=== PATIENT | female | born 1950 | race Caucasian/White ===

== ENCOUNTER 2024-09-26 10:27 | Outpatient (AMB) | payer MEDICARE, SELFPAY ==
--- NOTE | 2024-09-25 10:59 | MHC.OFFVIS ---
Intake Visit Reasons: mild asthma Allergies No Known Allergies Allergy (Verified 09/25/24 10:52) Coding
--- NOTE | 2024-09-26 10:36 | MHC.OFFVIS ---
Vital Signs 09/26/24 10:38 Height 5 ft 4 in Weight 210 lb 8.663 oz BMI 36.1 BP 124/70 Blood Pressure Location Rt brachial Position Sitting Pulse 76 Pulse Source Pulse Oximeter Pulse Oximetry (%) 97 Oxygen Delivery Method Room Air Intake Visit Reasons: mild asthma Reliability Technologist Required: No Microphone Boom Operator: Microphone Boom Operator offered & declined Accompanied by: Self / Same As Patient Allergies No Known Allergies Allergy (Verified 09/26/24 10:41) Medication List - Last Reconciled 09/26/24 by Kathy Cooper LPN acetaminophen ER (Tylenol 8 Hour) 1,300 mg PO ONCE PRN albuterol sulfate 90 mcg/actuation 2 puffs inhalation Q4-6H PRN atorvastatin 20 mg PO DAILY azelastine 2 sprays intranasal BID calcium carbonate-vitamin D3 600 mg-5 mcg (200 unit) 2 tabs PO DAILY cranberry extract 425 mg PO DAILY estradiol (Yuvafem) 10 mcg vaginal 3XW fluticasone propion-salmeterol 250-50 mcg/dose (Wixela Inhub) 1 inh inhalation BID fluticasone propionate 50 mcg/actuation 1 spray intranasal DAILY furosemide 20 mg PO DAILY PRN ibuprofen 200 mg PO Q6H PRN [id number] 333-1.7 mg (Airborne (ascorbate sodium)) tabs PO omeprazole 20 mg PO DAILY triamterene-hydrochlorothiazid 37.5-25 mg 1 tab PO DAILY HPI Comments Details: The patient is here for pulmonary evaluation. The patient is a 74 year woman with a known history of asthma who presents with worsening asthma symptoms. Apparently the patient states for the last year she has had multiple exacerbations about 3. She has required prednisone 3. The patient has been requiring her rescue inhaler often. More recently in the fall she was started on Advair that seems to be working well for her. She is taking the discuss and she is aware that this medication is no longer be made and she will be have to switch over to a similar medication. Patient just returned from a trip from [place]. While on her flight back the patient was exposed to sick child who was coughing sneezing and therefore she picked up a cold. She has been having some chest congestion productive phlegm with yellow phlegm and also some chest heaviness. She has not taking any medications for this. I did advise her to start a short course of azithromycin. She does not have any significant wheezing at this time and therefore she does not need to start steroids. I will send her a course of Medrol just in case her symptoms do worsen. In the meantime the triggers for asthma is not clear. Will go ahead and request allergy testing in addition to that will have her undergo pulmonary function studies. She did have a chest x-ray although I do not have it available at this time. [facility] Medical History (Updated 09/26/24 @ 21:43 by Real Mcduffie MD) URI (upper respiratory infection) Chronic cough Allergies Asthma Social History (Updated 09/26/24 @ 10:44 by Kathy Cooper LPN) Patient Tobacco Use Status: Former Tobacco user Cigarette Packs Per Day: 0.5 Years Smoked: 5 Review of Systems Const Denies fever(s) Eyes Reports no additional complaints ENT Reports nasal congestion Card Denies chest pain and Reports dyspnea on exertion Resp Reports as per HPI, Reports cough, Reports dyspnea on exertion and Reports wheezing GI Reports no additional complaints Musc Reports no additional complaints Skin/Breast Denies rash Endo Reports no additional complaints Alan/Lymph Reports no additional complaints Aller/Immun Reports wheezing Physical Exam Vital Signs: Last Vital Signs Pulse 76 09/26/24 10:38 BP 124/70 09/26/24 10:38 Pulse Ox 97 09/26/24 10:38 Oxygen Delivery Method Room Air 09/26/24 10:38 BMI result Body Mass Index 36.1 Const General: comfortable HEENT Head: Yes normocephalic Neck Neck: Yes supple Chest Chest palpation & inspection: normal inspection of the chest Resp Effort & Inspection: normal respiratory effort Auscultation: clear to auscultation bilaterally Cardio Heart sounds: S1 normal heart sound present and S2 normal heart sound present GI Palpation (GI): Soft to palpation Skin General skin exam: no rashes or lesions noted Extrem General: Yes no clubbing, cyanosis or edema Assessment & Plan Assessment & Plan (1) Chronic cough: Code(s): R05.3 - Chronic cough Category: Medical (2) Allergies: Code(s): T78.40XA - Allergy, unspecified, initial encounter Category: Medical Qualifiers: Encounter type: initial encounter Qualified Code(s): T78.40XA - Allergy, unspecified, initial encounter (3) Asthma: Code(s): J45. - Unspecified asthma, uncomplicated Category: Medical Qualifiers: Asthma severity: moderate Asthma persistence: persistent Asthma complication type: uncomplicated Qualified Code(s): J45.40 - Moderate persistent asthma, uncomplicated (4) URI (upper respiratory infection): Code(s): J06.9 - Acute upper respiratory infection, unspecified Category: Medical Qualifiers: URI type: unspecified URI Qualified Code(s): J06.9 - Acute upper respiratory infection, unspecified Plan Zpack Medrol pk if no better Continue Wixela/Advair PFTs Bloodwork/allergy testing F/U 2 months Orders: Orders PFT pulmonary function test Today J45.909 - Unspecified asthma, uncomplicated, R05.3 - Chronic cough, T78.40XA - Allergy, unspecified, initial encounter Resp Allergy Profile Region I Today J45.90 - Unspecified asthma, uncomplicated, R05.3 - Chronic cough, R91.1 - Solitary pulmonary nodule, T78.40XA - Allergy, unspecified, initial encounter Immunoglobulins,IgG IgA IgM Today J45.90 - Unspecified asthma, uncomplicated, R05.3 - Chronic cough, T78.40XA - Allergy, unspecified, initial encounter Erythrocyte Sedimentation Rate Today J45.909 - Unspecified asthma, uncomplicated, R05.3 - Chronic cough, T78.40XA - Allergy, unspecified, initial encounter Immunoglobulin E Today J45.90 - Unspecified asthma, uncomplicated, R05.3 - Chronic cough, T78.40XA - Allergy, unspecified, initial encounter Complete Blood Count Auto Diff Today J45.40 - Moderate persistent asthma, uncomplicated Medications: New azithromycin 500 mg PO DAILY 5 days 5 tabs 0RF fluticasone propion-salmeterol 250-50 mcg/dose 1 inh inhalation BID 60 ea 11RF methylprednisolone (Medrol (Chucky)) PO PER PKG DIR 6 days 21 ea 0RF Coding Level of Care Code New Pt Level 4 (91687) Diagnoses Chronic cough R05.3 Allergy, initial encounter T78.40XA Encounter type: initial encounter Moderate persistent asthma without complication J45.40 Asthma severity: moderate Asthma persistence: persistent Asthma complication type: uncomplicated Upper respiratory tract infection, unspecified type J06.9 URI type: unspecified URI Time Spent (min) 36
[2024-09-26 10:38] VITALS: BP 124/70; PULSE 76; O2SAT 97; BMI 36.1
--- OUTSIDE RECORDS SUMMARY | 2024-10-03 12:32 | XMS_ITS ---
Author Name [facility] Organization Unknown History of Medication Use Medication Directions Dispensed Refills Start Date End Date Stat ibuprofen 600 mg tablet TAKE 1 TABLET BY MOUTH EVERY 6 HOURS 1 HOUR BEFORE DENTAL APPOINTMENT FOR PAIN 12/03/2023 active chlorhexidine gluconate 0.12 % mouthwash 12/03/2023 active Paxlovid 300 mg (150 mg x 2)-100 mg tablets in a dose pack TK 2 NIRMATRELVIR TS AND 1 RITONAVIR T TOGETHER PO BID FOR 5 DAYS 12/03/2023 active omeprazole 20 mg capsule,delayed release TAKE 1 CAPSULE BY MOUTH TWICE DAILY 12/03/2023 active triamterene 37.5 mg-hydrochlorothiazide 25 mg tablet 12/03/2023 active fluticasone propionate 50 mcg/actuation nasal spray,suspension SHAKE LIQUID AND USE 1 SPRAY IN EACH NOSTRIL EVERY DAY 12/03/2023 active diclofenac sodium 25 mg tablet,delayed release TAKE 1 TABLET BY MOUTH EVERY DAY 12/03/2023 active triamterene 37.5 mg-hydrochlorothiazide 25 mg tablet 12/03/2023 active atorvastatin 20 mg tablet 12/03/2023 active estradiol 10 mcg vaginal tablet INSERT 1 TABLET VAGINALLY THREE TIMES A WEEK 12/03/2023 active nitrofurantoin monohydrate/macrocryst als 100 mg capsule TAKE 1 CAPSULE BY MOUTH TWICE DAILY WITH FOOD FOR 5 DAYS 12/03/2023 active sulfamethoxazole 800 mg-trimethoprim 160 mg tablet TAKE 1 TABLET BY MOUTH TWICE DAILY FOR 5 DAYS 12/03/2023 active amoxicillin 500 mg capsule TAKE 1 CAPSULE BY MOUTH THREE TIMES DAILY 12/03/2023 active Problems Problem Status Onset Date Problem Type Date of Resoluti on Source Infrapatellar bursitis of right knee active 2023-12-01 ProblemAct ENS_AONECT Osteoarthritis of right hip joint active 2023-12-01 ProblemAct E[facility]
== END 2024-09-26 11:02 | disposition home or self-care (01) ==
PROVIDERS: PCP Family Medicine; Visit Provider Hospitalist
DX: R05.3 Chronic cough (principal); T78.40XA Allergy, unspecified, initial encounter; J45.40 Moderate persistent asthma, uncomplicated; J06.9 Acute upper respiratory infection, unspecified
CPT/HCPCS: 99204

== ENCOUNTER → 2024-09-26 10:27 | Outpatient (BNVA) | payer MEDICARE, SELFPAY | PROVIDERS: PCP Family Medicine; Visit Provider Hospitalist | DX: J45.40 Moderate persistent asthma, uncomplicated (principal); R05.3 Chronic cough; J06.9 Acute upper respiratory infection, unspecified; T78.40XA Allergy, unspecified, initial encounter | CPT/HCPCS: 99202 ==

== ENCOUNTER 2024-11-16 09:49 | Outpatient (REF) | payer MEDICARE, SELFPAY ==
--- NOTE | 2024-11-16 09:53 | PFT_ITS ---
Indication: Asthma Spirometry [FEV1 FVC 79%; FEV1 2.18 L; FVC 2.76 L. no significant response to bronchodilators noted.] Lung Volumes [Total lung capacity 81% predicted; residual volume 62% predicted; expiratory reserve volume 19% predicted] Diffusion Capacity [DLCO 78% predicted; DLCO VA 92% predicted] Comparisons [none] Interpretation [No obstructive nor restrictive ventilatory defects identified. No significant response to bronchodilators noted. Lung volumes are low normal. This is significant decreased expiratory reserve volume secondary to elevated BMI. The patient does have a mild diffusion impairment although it rescue normal when corrected for the alveolar volume. Clinical correlation warranted.] MTDD
== END 2024-11-16 09:50 | disposition home or self-care (01) ==
LOC: HO.RESP 09:49
PROVIDERS: PCP Family Medicine; Visit Provider Hospitalist
DX: J45.909 Unspecified asthma, uncomplicated (principal); R05.3 Chronic cough; T78.40XA Allergy, unspecified, initial encounter
CPT/HCPCS: 94010; 94640; 94727; 94729

== ENCOUNTER → 2024-11-16 09:53 | Outpatient (BNV) | payer MEDICARE, SELFPAY | PROVIDERS: PCP Family Medicine; Visit Provider Hospitalist | DX: J45.909 Unspecified asthma, uncomplicated (principal) | CPT/HCPCS: 94060; 94727; 94729 ==

== ENCOUNTER 2025-03-01 09:59 | Outpatient (AMB) | payer MEDICARE, SELFPAY ==
[2025-03-01 10:06] VITALS: BP 110/62; PULSE 88; O2SAT 96; BMI 36.1
--- NOTE | 2025-03-01 10:06 | MHC.OFFVIS ---
Vital Signs 03/01/25 10:06 Height 5 ft 4 in Weight 210 lb 8.663 oz BMI 36.1 BP 110/62 Blood Pressure Location Lt brachial Position Sitting Pulse 88 Pulse Source Pulse Oximeter Pulse Oximetry (%) 96 Oxygen Delivery Method Room Air Intake Visit Reasons: S/p pft Washroom Cleaner Required: No Accompanied by: Self / Same As Patient Allergies No Known Allergies Allergy (Verified 03/01/25 10:09) HPI Comments Details: The patient is a 74 year woman with a known history of asthma who presents with worsening asthma symptoms. Apparently the patient states for the last year she has had multiple exacerbations about 3. She has required prednisone 3. The patient has been requiring her rescue inhaler often. More recently in the fall she was started on Advair that seems to be working well for her. She is taking the discuss and she is aware that this medication is no longer be made and she will be have to switch over to a similar medication. Patient just returned from a trip from [place]. While on her flight back the patient was exposed to sick child who was coughing sneezing and therefore she picked up a cold. She has been having some chest congestion productive phlegm with yellow phlegm and also some chest heaviness. She has not taking any medications for this. I did advise her to start a short course of azithromycin. She does not have any significant wheezing at this time and therefore she does not need to start steroids. I will send her a course of Medrol just in case her symptoms do worsen. In the meantime the triggers for asthma is not clear. Will go ahead and request allergy testing in addition to that will have her undergo pulmonary function studies. She did have a chest x-ray although I do not have it available at this time. 03/01/2025 the patient is here for pulmonary follow-up visit. She continues to have her symptoms of productive cough. She coughs on regular basis. Moderate severity. She continues use the Advair. This is been helpful although partially. She also uses her rescue inhaler. We did review her pulmonary function studies. No evidence of any obstructive nor restrictive ventilatory defects. She did have a chest x-ray done at [facility] although I do have the report to review. If she continues symptomatic we may have to repeat the x-ray and or get a CT scan of chest to further address her underlying symptoms. The patient is wondering about allergies. She is already taking [id number] antihistamines. Will add her Singulair. She is still complaining that she would like this congestion to settled specially since she has been taking Mucinex and is not helping much. Will start her on azithromycin macrolide suppression therapy in order to her chronic bronchitis. we can also consider Daliresp has a good option for chronic bronchitis. She did not have the blood work done in the blood work will be helpful to assess for any allergic components or immuno compromising conditions. Will follow-up in 4 months if the patient develops any worsening symptoms or any other concerning issues she can always call for an earlier assessment. [facility] Medical History (Updated 09/26/24 @ 21:43 by Real Mcduffie MD) URI (upper respiratory infection) Chronic cough Allergies Asthma Social History Alcohol intake: current Alcohol intake frequency: holidays/special occasions only Patient Tobacco Use Status: Former Tobacco user Cigarette Packs Per Day: 0.5 Years Smoked: 5 Review of Systems Const Denies chills, Denies fatigue, Denies fever(s), Denies weight gain and Denies weight loss Eyes Reports no additional complaints ENT Denies dizziness Card Denies chest pain, Denies leg edema, Denies lightheadedness, Denies palpitations, Denies dyspnea on exertion, Denies orthopnea and Denies other Resp Denies cough, Denies dyspnea on exertion and Reports wheezing GI Denies hematochezia and Denies change in stool character Musc Denies abnormal gait, Denies muscle weakness, Denies numbness, Denies radiating pain into limb and Denies tingling Skin/Breast Denies rash Neuro Denies abnormal gait, Denies dizziness, Denies numbness and Denies tingling Endo Denies fatigue and Denies palpitations Alan/Lymph Reports no additional complaints Aller/Immun Reports wheezing Physical Exam Vital Signs: Last Vital Signs Pulse 88 03/01/25 10:06 BP 110/62 03/01/25 10:06 Pulse Ox 96 03/01/25 10:06 Oxygen Delivery Method Room Air 03/01/25 10:06 BMI result Body Mass Index 36.1 Const General: comfortable HEENT Head: Yes normocephalic Neck Neck: Yes supple Chest Chest palpation & inspection: normal inspection of the chest Resp Effort & Inspection: normal respiratory effort Auscultation: wheezes and diminished lung sounds Cardio Heart sounds: S1 normal heart sound present and S2 normal heart sound present GI Palpation (GI): Soft to palpation Skin General skin exam: no rashes or lesions noted Extrem General: Yes no clubbing, cyanosis or edema Assessment & Plan Assessment & Plan (1) Chronic cough: Code(s): R05.3 - Chronic cough Category: Medical (2) Allergies: Code(s): T78.40XA - Allergy, unspecified, initial encounter Category: Medical Qualifiers: Encounter type: initial encounter Qualified Code(s): T78.40XA - Allergy, unspecified, initial encounter (3) Asthma: Code(s): J45.909 - Unspecified asthma, uncomplicated Category: Medical Qualifiers: Asthma complication type: uncomplicated Asthma persistence: persistent Asthma severity: moderate Qualified Code(s): J45.40 - Moderate persistent asthma, uncomplicated Plan Start Singulair continue Antihistamines OTC Continue Wixela/Advair, consider Trelegy or adding LAMA start Azithromycin MWF x 6-8 weeks Bloodwork/allergy testing MAy need additional imaging if no better (Need to review her rec F/U 4-6 months Medications: New montelukast 10 mg PO DAILY 30 days 30 tabs 11RF J45.909 - Unspecified asthma, uncomplicated azithromycin Take 1 tablet on Wednesday/Wednesday/Wednesday 250 mg PO 3XW 28 days 12 tabs 1RF K21.9 - Gastro-esophageal reflux disease without esophagitis Coding Level of Care Code Est Pt Level 4 (16343) Diagnoses Chronic cough R05.3 Allergy, initial encounter T78.40XA Encounter type: initial encounter Moderate persistent asthma without complication J45.40 Asthma complication type: uncomplicated Asthma persistence: persistent Asthma severity: moderate Time Spent (min) 17
--- OUTSIDE RECORDS SUMMARY | 2025-03-01 10:59 | XMS_ITS | Clinical Summary ---
Author Organization [facility] Address [address] [place] [address] Care Team Providers Care Posting Specialist Name Role Phone Belinda Dowling MD Primary Care Provider [phone] Allergies No known active allergies Medications Medication Sig Dispensed Refills Start Date End Date Status omeprazole (PRILOSEC) 20 MG capsule Take 20 mg by mouth daily. 0 Active triamterene-hydroc hlorothiazide (DYAZIDE) 37.5-25 MG per capsule Take 1 capsule by mouth. 0 Active atorvastatin (LIPITOR) tablet 20 mg Take 20 mg by mouth daily. 0 Active calcium citrate-vitamin D (CITRACAL+D) 315-200 MG-UNIT per tablet Take 1 tablet by mouth 2 (two) times a day. 0 Active Cholecalciferol (VITAMIN D-3 PO) Take by mouth. 0 Acti ve vitamin C (ASCORBIC ACID) 250 MG tablet Take 250 mg by mouth daily. 0 Active Naproxen Sodium (ALEVE) 220 MG CAPS Take by mouth. 0 Active methylPREDNISolone (MEDROL DOSEPACK) 4 MG tablet follow package directions 21 tablet 0 08/23/2019 Active BREO ELLIPTA 100-25 MCG/INH inhaler INHALE 1 PUFF BY MOUTH DAILY ASTHMA J 45.9 0 12/18/2020 Active fluticasone (FLONASE) 50 MCG/ACT nasal spray SPRAY 2 SQUIRTS IN EACH NOSTRIL ONCE DAILY 0 03/27/2019 Active amoxicillin (AMOXIL) 500 MG capsule Take 4 tabs 1 hour prior to dental appointment or colonoscopy 20 capsule 3 07/21/2022 Active Active Problems Problem Noted Date Diagnosed Date Central stenosis of spinal canal 01/23/2021 Back pain of lumbar region with sciatica 021 Left hip pain 07/06/2017 Family History Medical History Relation Name Comments Cancer Father Heart disease Father Hypertension Father Diabetes Maternal Grandfather Diabetes Maternal Grandmother Arthritis Mother Relation Name Status Comments Father Maternal Grandfather Maternal Grandmother Mother Social History Tobacco Use Types Packs/Day Years Used Date Smoking Tobacco: Never Alcohol Use Standard Drinks/Week Comments Yes 0 (1 standard drink = 0.6 oz pur e alcohol) Sex and Gender Information Value Date Recorded Sex Assigned at Not on file Gender Identity Not on file Sexual Orientation Not on file Last Filed Vital Signs Vital Sign Reading Time Taken Comments Blood Pressure - - Pulse - - Temperature - - Respiratory Rate - - Oxygen Saturation - - Inhaled Oxygen Concentration - - Weight 95.7 kg (211 lb) 01/07/2021 10:29 AM EDT Height 165.1 cm (5' 5 ) 01/07/2021 10:29 AM EDT Body Mass Index 35.11 01/07/2021 10:29 AM EDT Plan of Treatment Health Maintenance Due Date Last Done Comments Hepatitis C Screening 1950 COVID-19 Vaccine (#1) 1948 Depression Screening 1960 BMI Counseling 1966 Preventative Health Evaluation 1966 Shingrix-Zoster Vaccine (1 of 2) 1998 Fall Risk Assessment 2013 Osteoporosis Screening (DEXA Scan) 2013 RSV Adult > 60+ Yrs or (1 - 1-dose 75+ series) 2023 Influenza Vaccine (#1) 2024 9, 08/30/2017, 08/24/2016, Additional history exists DTap / Tdap / Td (2 - Td or Tdap) 02/14/2031 02/14/2021 Pneumococcal Vaccine Completed 08/22/2015, 07/27/2013, 08/02/2007 Hepatitis B Vaccines Aged Out No long er eligible based on patient's age to complete this topic RSV Ped < 20 months Aged Out No longe r eligible based on patient's age to complete this topic Care Teams Posting Specialist Relationship Specialty Start Date End Date Belinda Dowling MD [address] [place] [id number] PCP - General Family Medicine 06/14/17
--- OUTSIDE RECORDS SUMMARY | 2025-03-01 10:59 | XMS_ITS | Clinical Summary ---
Author Organization [address] [place] [address] [place] [phone] Care Team Providers Care Freelance Data Entry Name Role Phone Belinda Dowling MD Primary Care Provider [phone] Allergies Active Allergy Reactions Criticality Noted Date Comments Pertussis Vaccines Rash Low 02/14/2021 Localized rash at injection site Medications atorvastatin (LIPITOR) 20 mg tablet 01/16/2021 Active fluticasone propionate (FLONASE) 50 mcg/actuation nasal spray SHAKE LQ AND U 1 TO 2 SPRAYS IEN QD 08/03/2020 Active BREO ELLIPTA 100-25 mcg/dose blister powder for inhalation INHALE 1 PUFF BY MOUTH DAILY ASTHMA J 45.9 01/21/2021 Active omeprazole (PRILOSEC) 20 mg capsule Take 20 mg by mouth daily. Active triamterene-hydr oCHLOROthiazide (MAXZIDE-25) 37.5-25 mg per tablet 01/16/2021 Active Immunizations Name Administration Dates Next Due Tdap 02/14/2021 Social History Tobacco Use Types Packs/Day Years Used Date Smoking Tobacco: Former Smokeless Tobacco: Never Alcohol Use Standard Drinks/Week Comments Not Currently 0 (1 standard drink = 0.6 oz pur e alcohol) AUDIT-C Answer Date Recorded Q1: How often do you have a drink containing alc ohol? 2-3 times a week 02/14/2021 Average Number of Drinks Not on file 021 Frequency of Binge Drinking Not on file 01/24 Comments No Sex and Gender Information Value Date Recorded Sex Assigned at Not on file Legal Sex Female 10:13 PM EST Gender Identity Not on file Sexual Orientation Not on file Last Filed Vital Signs Vital Sign Reading Time Taken Comments Blood Pressure 135/78 02/14/2021 2:18 PM EDT Pulse 106 02/14/2021 2:18 PM EDT Temperature 36.5 ??C (97.7 ??F) 02/14/2021 2:18 PM ED T Respiratory Rate 18 02/14/2021 2:18 PM EDT Oxygen Saturation 95% 02/14/2021 2:18 PM EDT Inhaled Oxygen Concentration - - Weight 94.8 kg (209 lb) 02/14/2021 11:46 AM EDT Height 165.1 cm (5' 5 ) 02/14/2021 11:46 AM EDT Body Mass Index 34.78 02/14/2021 11:46 AM EDT Plan of Treatment Health Maintenance Due Date Last Done Comments HIV screening 1961 Hepatitis C screening 1966 Lipid disorder screening 1988 Diabetes screening 1993 Pneumococcal Vaccine (50+ ye ars) (1 of 1 - PCV) 1998 Shingles vaccine (Shingrix) (1 of 2 - Shingrix (RZV) 2 Dose Standard Series) 1998 Osteoporosis screening (bone density) 2013 RSV Immunization (1 - 1-dose 75+ series) 2023 Covid-19 vaccine series (1 - season) 2024 Influenza vaccine 06/25/2025 Tetanus adult (Td q 10,TDAP once) 02/14/2031 021 Breast cancer screening Discontinued Cervical cancer screening Discontinued Meningococcal Vaccine Aged Out No rachel boni eligible based on patient's age to complete this topic Insurance MEDICARE MANAGED [facility] [place]IC[place] [facility] [place]Y [id number] MEDICARE MANAGED [facility] [place] DAISY MCKINNEY [id number] Care Teams Freelance Data Entry Relationship Specialty Start Date End Date Belinda Dowling MD PCP - General Family Medicine 02/14/21
--- OUTSIDE RECORDS SUMMARY | 2025-03-01 10:59 | XMS_ITS | Clinical Summary ---
Author Organization [address] Address [address] [place] [id number] Phone Care Team Providers Care Retail Delivery Driver Name Role Phone Belinda Dowling MD Primary Care Provider [phone] Surgical History Surgery Date Site/Laterality Comments OTHER SURGICAL HISTORY 1975 PROCEDURE: ME UNLISTED LAPAROSCOPY PROCEDURE UTERUS OTHER SURGICAL HISTORY PROCEDURE: ARTHROSCOPY PROCEDURE NEC TOTAL KNEE ARTHROPLASTY 04/2008 PROCEDURE: ME ARTHRP KNE CONDYLE&PLATU MEDIAL&LAT COMPARTMENTS; COMMENT: left TONSILLECTOMY age 7 PROCEDURE: HISTORICAL TONSILLECTOMY Medical History Medical History Date Comments Vitamin D deficiency 03/02/2018 DX:Vitamin D deficiency Hypertension 03/02/2018 DX:Hypertension Hyperlipidemia 02/22/2017 DX:Hyperlipidemi a History of basal cell carcin dewey (BCC) of skin 05/28/2012 DX:History of basal cell car cinoma (BCC) of skin Hiatal hernia 07/15/2012 DX:Hiatal hernia Gilbert's syndrome 07/27/2013 DX:Gilbert's syndrome Esophageal reflux 11/24/2016 DX:Esophageal reflux Arthritis 08/30/2017 DX:Arthritis; CO MMENT: Comments: Dr. Yao zuniga Gets cortisone shots Osteoarthrosis DX:Osteoarthrosi s History of knee replacement 12/21/2018 DX:H istory of knee replacement Family History Medical History Relation Name Comments Colon cancer Father Diabetes Maternal Grandmother Relation Name Status Comments Brother 1 Alive Brother 2 Alive Daughter Alive Father Alive Maternal Grandmother Mother Alive Sister 1 Alive Sister 2 Alive Social History Tobacco Use Types Packs/Day Years Used Date Smoking Tobacco: Former Smokeless Tobacco: Never Alcohol Use Standard Drinks/Week Comments Yes 0 (1 standard drink = 0.6 oz pur e alcohol) Comments No Sex and Gender Information Value Date Recorded Sex Assigned at Not on file Legal Sex Female 5:53 AM EST Gender Identity Not on file Sexual Orientation Not on file Obstetrics History Para Term AB IAB SAB Ectopic Multiple Livin g Live Births 1 Last Filed Vital Signs Vital Sign Reading Time Taken Comments Blood Pressure - - Pulse - - Temperature - - Respiratory Rate - - Oxygen Saturation - - Inhaled Oxygen Concentration - - Weight 93.9 kg (207 lb) 10/23/2024 8:44 AM EST Height 165.1 cm (5' 5 ) 10/23/2024 8:44 AM EST Body Mass Index 34.45 10/23/2024 8:44 AM EST Plan of Treatment Health Maintenance Due Date Last Done Comments Zoster Vaccines (3 of 3) 12/17/2020 020, 08/23/2020, 02/11/2012 Cholesterol Screening (Lipid Panel) 09/27/2022 Depression Screening 09/27/2022 Falls Risk Assessment 09/27/2022 Hepatitis C Screening 09/27/2022 Medicare Annual Wellness Visit 09/27/2022 Social Influencers of Health Screening 09/27/2022 Hypertension/CHF/CAD Annual BMP Blood Test 10/08/2022 COVID-19 Vaccine ( season) 2025 07/12/2024, 07/24/2022, 03/12/2022, Additional history exists Osteoporosis Screening (Bone Density Screening) 08/13/2030 08/13/2020 DTaP,Tdap,and Td Vaccines (3 - Td or Tdap) 02/14/2031 02/14/2021, 05/13/2011 Pneumococcal Vaccine: 50+ Years Completed 09/22/2023, 08/22/2015, 07/27/2013, Additional history exists RSV Immunization Adult Patients Completed 11/18/2023 Influenza Vaccine Completed 08/25/2024, , 07/24/2022, Additional history exists Breast Cancer Screening Discontinued 10/23/20 24, 10/21/2023, 10/07/2022, Additional history exists HIB Vaccines Aged Out No longer eligi ble based on patient's age to complete this topic HPV Vaccines Aged Out No longer eligi ble based on patient's age to complete this topic Hepatitis A Vaccines Aged Out No long er eligible based on patient's age to complete this topic Hepatitis B Vaccines Aged Out No long er eligible based on patient's age to complete this topic IPV Vaccines Aged Out No longer eligi ble based on patient's age to complete this topic MMR Vaccines Aged Out No longer eligi ble based on patient's age to complete this topic Meningococcal ACWY Vaccine Aged Out N o longer eligible based on patient's age to complete this topic Meningococcal B Vaccine Aged Out No l onger eligible based on patient's age to complete this topic RSV Immunization Patients Under 20 months Aged Out No longer eligible based on patient's age to complete this topic Varicella Vaccines Aged Out No longer eligible based on patient's age to complete this topic Procedures Procedure Name Priority Date/Time Associated Diagnosis Comments MG MAMMO DIGITAL SCREENING W ROBBY BILAT Routine 10/23/2024 9:01 AM EST Breast cancer screening by mammogram MARIA VICTORIA DEXA AXIAL SKELETON Routine 08/13/2020 4:17 PM EDT Asymptomatic menopausal state from Last 3 Months or Most Recently Relevant to Health Maintenance Results * MG Mammo Digital Screening w Robby bilat (10/23/2024 9:01 AM EST) Anatomical Region Laterality Modality Breast Bilateral Mammography 10/23/2024 10:2 0 AM EST Impressions 10/23/2024 10:24 AM EST No mammographic evidence of malignancy. A negative mammogram in the presence of a clinically suspicious palpable abnormality does not preclude the possibility of malignancy or alter the indications for biopsy. PQRI CPT II 3342F Code 62808, 37170 PQRI 225 CPT II 7025F TISSUE DENSITY: There are scattered areas of fibroglandular density. (BI-RADS category B) IMPRESSION: Benign. BI-RADS CATEGORY: 2 - BENIGN RECOMMENDATION: Screening bilateral mammogram is recommended in 1 year. Mammo Location: [facility], [address] [place] [address] -------- FINAL REPORT -------- Dictated By: Ralph Garnett Dictated Date: 10/23/2024 10:20 ET Assigned Physician: Ralph Garnett Reviewed and Electronically Signed By: Ralph Garnett Signed Date: 10/23/2024 10:24 ET Workstation ID: [id number] Transcribed By: Self Edit Transcribed Date: 10/23/2024 10:20 ET Narrative 10/23/2024 10:24 AM EST CLINICAL: The patient is a 74 years Female presenting for routine screening mammography. COMPARISON: Most recently 10/20/2023 and most remotely 07/21/2017. ?? TECHNIQUE: Full-field digital mammography of the breasts bilaterally consisting of tomosynthesis in MLO and CC projection is performed in the Aneumede 2000-D unit. ??Computer aided detection utilizing the pocketfungamesD system was utilized. FINDINGS: The breasts are again seen to be composed of a combination of fatty and fibroglandular elements. ??Bilateral benign punctate, secretory, and rim type calcifications are again seen. ??Vascular calcifications are again noted. ??There is no suspicious cluster of microcalcifications, mass, or area of architectural distortion. There is no skin thickening or nipple retraction. Procedure Note Ralph Garnett MD - 10/23/2024 CLINICAL: The patient is a 74 years Female presenting for routinescreening mammography. COMPARISON: Most recently 10/20/2023 and most remotely 07/21/2017. TECHNIQUE: Full-field digital mammography of the breasts bilaterallyconsisting of tomosynthesis in MLO and CC projection is performed in thePrivate Practiceographe 2000-D unit. Computer aided detection utilizing the iCADsystem was utilized. FINDINGS: The breasts are again seen to be composed of a combination offatty and fibroglandular elements. Bilateral benign punctate, secretory,and rim type calcifications are again seen. Vascular calcifications areagain noted. There is no suspicious cluster of microcalcifications, mass,or area of architectural distortion. There is no skin thickening or nippleretraction. IMPRESSION: No mammographic evidence of malignancy. A negative mammogram in the presence of a clinically suspicious palpableabnormality does not preclude the possibility of malignancy or alter theindications for biopsy. PQRI CPT II 3342F Code 95054, 00402 PQRI 225 CPT II 7025F TISSUE DENSITY: There are scattered areas of fibroglandular density.(BI-RADS category B) IMPRESSION: Benign. BI-RADS CATEGORY: 2 - BENIGN RECOMMENDATION: Screening bilateral mammogram is recommended in 1 year. Mammo Location: [facility], [address] [place] [id number] -------- FINAL REPORT -------- Dictated By: Ralph Garnett Dictated Date: 10/23/2024 10:20 ET Assigned Physician: Ralph Garnett Reviewed and Electronically Signed By: Ralph Garnett Signed Date: 10/23/2024 10:24 ET Workstation ID: [id number] Transcribed By: Self Edit Transcribed Date: 10/23/2024 10:20 ET us Belinda Dowling MD IMG BI PROCEDURES Final Res ult * MARIA VICTORIA DEXA AXIAL SKELETON (08/13/2020 4:17 PM EDT) Anatomical Region Laterality Modality Mammography 08/13/2020 8:53 AM EDT Narrative 08/13/2020 4:17 PM EDT [facility] Diagnostic Imaging Department [address] [place] [address] [id number] Patient: ??LUTHERKAILA ?/Age/Sex: 1950 - 70 - F Unit#: ??[id number] ? Location/Status: ??SPDIMAM/REG CLI ? Mnemonic/Ordering Site: ??MAMDEXAAX/SPMAM Ordering Physician: ??BELINDA DOWLING MD Maria Victoria Dexa Axial Skeleton - 08/13/20929 HISTORY: Post menopausal woman with hormone depletion for screening bone densitometry. The patient is on calcium supplement with Vitamin D. Additional medications include steroid inhalers. TECHNIQUE: Bone densitometry is performed utilizing dual energy x-ray absorptiometry (DEXA) in the Amura unit. The lumbar spine is evaluated in the AP projection and L1 through L4 are utilized. The proximal femora are evaluated in the AP projection bilaterally. FINDINGS: AP spine: Bone mineral density: 1.069 gm/cm2 T-score: -0.8 Z-score: -0.2 Right hip: Bone mineral density: 0.969 gm/cm2 T-score: -0.3 Z-score: 0.5 IMPRESSION: Normal bone mineralization in the lumbar spine. Normal bone mineralization in the bilateral hips. [id number] A report detailing these results has been enclosed. Dictating Physician: ??JOHNIE GROVES MD Electronically Signed by: ??JOHNIE GROVES MD Dic Date/Time: ??08/13/20 1616 Sign date/Time: ??08/13/20 1617 Procedure Note Johnie Groves MD - 10/13/2022 [facility] Diagnostic Imaging Department [address] [place] [address] Patient: KAILA SCHAFER /Age/Sex: 1950 - 70 - F Unit#: [id number] Location/Status: SPDIMAM/REG CLI Mnemonic/Ordering Site: MAMDEXAAX/SPMAM Ordering Physician: BELINDA DOWLING MD Maria Victoria Dexa Axial Skeleton - 08/13/20929 HISTORY: Post menopausal woman with hormone depletion for screening bone densitometry. The patient is on calcium supplement with Vitamin D.Additional medications include steroid inhalers. TECHNIQUE: Bone densitometry is performed utilizing dual energy x-ray absorptiometry (DEXA) in the Amura unit. The lumbar spine isevaluated in the AP projection and L1 through L4 are utilized. The proximal femoraare evaluated in the AP projection bilaterally. FINDINGS: AP spine: Bone mineral density: 1.069 gm/cm2 T-score: -0.8 Z-score: -0.2 Right hip: Bone mineral density: 0.969 gm/cm2 T-score: -0.3 Z-score: 0.5 IMPRESSION: Normal bone mineralization in the lumbar spine. Normal bone mineralization in the bilateral hips. [id number] A report detailing these results has been enclosed. Dictating Physician: JOHNIE GROVES MD Electronically Signed by: JOHNIE GROVES MD Dic Date/Time: 08/13/20 161 Sign date/Time: 08/13/20 161 Belinda Dowling MD IMG BI PROCEDURES Final Res ult from Last 3 Months or Most Recently Relevant to Health Maintenance Insurance [employer] Advance Directives Documents on File Type Date Recorded Patient Supervisory Examiner Expl anation Health Care Decision (hx) 02/01/2017 AD SHELL DIRECTIVE Health Care Decision (hx) 02/01/2017 AD SHELL DIRECTIVE Health Care Decision (hx) 02/01/2017 AD SHELL DIRECTIVE Health Care Decision (hx) 02/01/2017 AD SHELL DIRECTIVE Health Care Decision (hx) 02/01/2017 AD SHELL DIRECTIVE Health Care Decision (hx) 02/01/2017 AD SHELL DIRECTIVE Health Care Decision (hx) 02/01/2017 AD SHELL DIRECTIVE Health Care Decision (hx) 02/01/2017 AD SHELL DIRECTIVE Health Care Decision (hx) 02/01/2017 AD SHELL DIRECTIVE Health Care Decision (hx) 02/01/2017 AD SHELL DIRECTIVE Health Care Decision (hx) 02/01/2017 AD SHELL DIRECTIVE Health Care Decision (hx) 02/01/2017 AD SHELL DIRECTIVE Health Care Decision (hx) 02/01/2017 AD SHELL DIRECTIVE Health Care Decision (hx) 02/01/2017 AD SHELL DIRECTIVE Health Care Decision (hx) 02/01/2017 AD SHELL DIRECTIVE Health Care Decision (hx) 02/01/2017 AD SHELL DIRECTIVE Health Care Decision (hx) 02/01/2017 AD SHELL DIRECTIVE Health Care Decision (hx) 02/01/2017 AD SHELL DIRECTIVE Health Care Decision (hx) 02/01/2017 AD SHELL DIRECTIVE Health Care Decision (hx) 02/01/2017 AD SHELL DIRECTIVE Health Care Decision (hx) 02/01/2017 AD SHELL DIRECTIVE Health Care Decision (hx) 02/01/2017 AD SHELL DIRECTIVE Health Care Decision (hx) 02/01/2017 AD SHELL DIRECTIVE Health Care Decision (hx) 02/01/2017 AD SHELL DIRECTIVE Health Care Decision (hx) 02/01/2017 AD SHELL DIRECTIVE Health Care Decision (hx) 02/01/2017 AD SHELL DIRECTIVE Health Care Decision (hx) 02/01/2017 AD SHELL DIRECTIVE Health Care Decision (hx) 02/01/2017 AD SHELL DIRECTIVE Health Care Decision (hx) 11/15/2015 AD SHELL DIRECTIVE Health Care Decision (hx) 11/15/2015 AD SHELL DIRECTIVE Health Care Decision (hx) 11/15/2015 AD SHELL DIRECTIVE Health Care Decision (hx) 11/15/2015 AD SHELL DIRECTIVE Health Care Decision (hx) 11/15/2015 AD SHELL DIRECTIVE Health Care Decision (hx) 11/15/2015 AD SHELL DIRECTIVE Health Care Decision (hx) 11/15/2015 AD SHELL DIRECTIVE Health Care Decision (hx) 11/15/2015 AD SHELL DIRECTIVE Health Care Decision (hx) 11/15/2015 AD SHELL DIRECTIVE Health Care Decision (hx) 11/15/2015 AD SHELL DIRECTIVE Health Care Decision (hx) 11/15/2015 AD SHELL DIRECTIVE Health Care Decision (hx) 11/15/2015 AD SHELL DIRECTIVE Health Care Decision (hx) 11/15/2015 AD SHELL DIRECTIVE Health Care Decision (hx) 11/15/2015 AD SHELL DIRECTIVE Health Care Decision (hx) 11/15/2015 AD SHELL DIRECTIVE Health Care Decision (hx) 11/15/2015 AD SHELL DIRECTIVE Health Care Decision (hx) 11/15/2015 AD SHELL DIRECTIVE Health Care Decision (hx) 11/15/2015 AD SHELL DIRECTIVE Health Care Decision (hx) 11/15/2015 AD SHELL DIRECTIVE Health Care Decision (hx) 11/15/2015 AD SHELL DIRECTIVE Health Care Decision (hx) 11/15/2015 AD SHELL DIRECTIVE Health Care Decision (hx) 11/15/2015 AD SHELL DIRECTIVE Health Care Decision (hx) 11/15/2015 AD SHELL DIRECTIVE Health Care Decision (hx) 11/15/2015 AD SHELL DIRECTIVE Health Care Decision (hx) 11/15/2015 AD SHELL DIRECTIVE Health Care Decision (hx) 11/15/2015 AD SHELL DIRECTIVE Health Care Decision (hx) 11/15/2015 AD SHELL DIRECTIVE Health Care Decision (hx) 11/15/2015 AD SHELL DIRECTIVE Care Teams Retail Delivery Driver Relationship Specialty Start Date End Date Belinda Dowling MD PCP - General Internal Medicine 08/13/18
== END 2025-03-01 10:59 | disposition home or self-care (01) ==
LOC: HO.HPS 09:59
PROVIDERS: PCP Family Medicine; Visit Provider Hospitalist
DX: R05.3 Chronic cough (principal); T78.40XA Allergy, unspecified, initial encounter; J45.40 Moderate persistent asthma, uncomplicated
CPT/HCPCS: 99214

== ENCOUNTER → 2025-03-01 09:59 | Outpatient (BNVA) | payer MEDICARE, SELFPAY | PROVIDERS: PCP Family Medicine; Visit Provider Hospitalist | DX: R05.3 Chronic cough (principal); J45.40 Moderate persistent asthma, uncomplicated; K21.9 Gastro-esophageal reflux disease without esophagitis; T78.40XA Allergy, unspecified, initial encounter; X58.XXXA Exposure to other specified factors, initial encounter | CPT/HCPCS: 99212 ==

== ENCOUNTER 2025-07-23 10:29 | Outpatient (AMB) | payer MEDICARE, SELFPAY ==
[2025-07-23 10:32] VITALS: BP 126/72; PULSE 88; O2SAT 96; BMI 35.0
--- NOTE | 2025-07-23 10:32 | MHC.OFFVIS ---
Vital Signs 07/23/25 10:32 Height 5 ft 4 in Weight 203 lb 14.841 oz BMI 35.0 BP 126/72 Blood Pressure Location Lt brachial Position Sitting Pulse 88 Pulse Source Pulse Oximeter Pulse Oximetry (%) 96 Oxygen Delivery Method Room Air Intake Visit Reasons: Asthma Drug And Alcohol Treatment Specialist Required: No Accompanied by: Self / Same As Patient Allergies No Known Allergies Allergy (Verified 07/23/25 10:35) HPI Comments Details: The patient is a 75 year woman with a known history of asthma who presents with worsening asthma symptoms. Apparently the patient states for the last year she has had multiple exacerbations about 3. She has required prednisone 3. The patient has been requiring her rescue inhaler often. More recently in the fall she was started on Advair that seems to be working well for her. She is taking the discuss and she is aware that this medication is no longer be made and she will be have to switch over to a similar medication. Patient just returned from a trip from [place]. While on her flight back the patient was exposed to sick child who was coughing sneezing and therefore she picked up a cold. She has been having some chest congestion productive phlegm with yellow phlegm and also some chest heaviness. She has not taking any medications for this. I did advise her to start a short course of azithromycin. She does not have any significant wheezing at this time and therefore she does not need to start steroids. I will send her a course of Medrol just in case her symptoms do worsen. In the meantime the triggers for asthma is not clear. Will go ahead and request allergy testing in addition to that will have her undergo pulmonary function studies. She did have a chest x-ray although I do not have it available at this time. 03/01/2025 the patient is here for pulmonary follow-up visit. She continues to have her symptoms of productive cough. She coughs on regular basis. Moderate severity. She continues use the Advair. This is been helpful although partially. She also uses her rescue inhaler. We did review her pulmonary function studies. No evidence of any obstructive nor restrictive ventilatory defects. She did have a chest x-ray done at [facility] although I do have the report to review. If she continues symptomatic we may have to repeat the x-ray and or get a CT scan of chest to further address her underlying symptoms. The patient is wondering about allergies. She is already taking [id number]-[id number] antihistamines. Will add her Singulair. She is still complaining that she would like this congestion to settled specially since she has been taking Mucinex and is not helping much. Will start her on azithromycin macrolide suppression therapy in order to her chronic bronchitis. we can also consider Daliresp has a good option for chronic bronchitis. She did not have the blood work done in the blood work will be helpful to assess for any allergic components or immuno compromising conditions. Will follow-up in 4 months if the patient develops any worsening symptoms or any other concerning issues she can always call for an earlier assessment. 07/23/2025 the patient is here for pulmonary follow-up visit. Overall the patient is doing better. Her cough is better. She continues on her Advair Diskus. Apparently she still getting it. She is tolerating it well. Denies any hoarseness. Her cough is overall better. She has not had to use her rescue inhaler. She continues with the allergy therapy including the Singulair and the Astelin nasal spray and ajlj-kco-rcagavo antihistamine. They have been affecting beneficial. She still has a postnasal drip in the morning. May be vasomotor rhinitis. At this point she does not need to have that medically treated. Her last chest x-ray was back from May 2024 demonstrating no evidence of any parenchymal lung disease. She did undergo PFTs from October 2024 which I personally reviewed. The patient does have what appears to be some small airways disease consistent with a diagnosis of asthma. However no COPD. Lung expansion is decreased but within normal limits and gas exchange is mildly decreased but it does normalize when corrected for the alveolar volume. Overall reassuring PFTs. The patient will continue with the current therapy and she will follow-up in a year's time. If any issues arise prior to the next visit she can always call for further recommendations. [facility] Medical History (Updated 09/26/24 @ 21:43 by Real Mcduffie MD) URI (upper respiratory infection) Chronic cough Allergies Asthma Social History Alcohol intake: current Alcohol intake frequency: holidays/special occasions only Patient Tobacco Use Status: Former Tobacco user Cigarette Packs Per Day: 0.5 Years Smoked: 5 Review of Systems Const Denies chills, Denies fatigue, Denies fever(s), Denies weight gain and Denies weight loss Eyes Reports no additional complaints ENT Denies dizziness Card Denies chest pain, Denies leg edema, Denies lightheadedness, Denies palpitations, Denies dyspnea on exertion, Denies orthopnea and Denies other Resp Denies cough, Denies dyspnea on exertion and Reports wheezing GI Denies hematochezia and Denies change in stool character Musc Denies abnormal gait, Denies muscle weakness, Denies numbness, Denies radiating pain into limb and Denies tingling Skin/Breast Denies rash Neuro Denies abnormal gait, Denies dizziness, Denies numbness and Denies tingling Endo Denies fatigue and Denies palpitations Alan/Lymph Reports no additional complaints Aller/Immun Reports wheezing Physical Exam Vital Signs: Last Vital Signs Pulse 88 07/23/25 10:32 BP 126/72 07/23/25 10:32 Pulse Ox 96 07/23/25 10:32 Oxygen Delivery Method Room Air 07/23/25 10:32 BMI result Body Mass Index 35.0 Const General: comfortable HEENT Head: Yes normocephalic Neck Neck: Yes supple Chest Chest palpation & inspection: normal inspection of the chest Resp Effort & Inspection: normal respiratory effort Auscultation: wheezes and diminished lung sounds Cardio Heart sounds: S1 normal heart sound present and S2 normal heart sound present GI Palpation (GI): Soft to palpation Skin General skin exam: no rashes or lesions noted Extrem General: Yes no clubbing, cyanosis or edema Assessment & Plan Assessment & Plan (1) Chronic cough: Code(s): R05.3 - Chronic cough Category: Medical (2) Allergies: Code(s): T78.40XA - Allergy, unspecified, initial encounter Category: Medical Qualifiers: Encounter type: initial encounter Qualified Code(s): T78.40XA - Allergy, unspecified, initial encounter (3) Asthma: Code(s): J45.909 - Unspecified asthma, uncomplicated Category: Medical Qualifiers: Asthma complication type: uncomplicated Asthma persistence: persistent Asthma severity: moderate Qualified Code(s): J45.40 - Moderate persistent asthma, uncomplicated Plan conintue Singulair continue Antihistamines OTC Continue Wixela/Advair continue Fluticasone for 2-4 weeks conitnue astelin nasal spray F/U 12 months Coding Level of Care Code Est Pt Level 4 (93495) Complex EM visit Add On G2211 Diagnoses Chronic cough R05.3 Allergy, initial encounter T78.40XA Encounter type: initial encounter Moderate persistent asthma without complication J45.40 Asthma complication type: uncomplicated Asthma persistence: persistent Asthma severity: moderate Time Spent (min) 16
--- OUTSIDE RECORDS SUMMARY | 2025-07-23 11:44 | XMS_ITS | Clinical Summary ---
Author Organization [address] [facility] Address [address] [place] [address] Phone Care Team Providers Care Glaze Supervisor Name Role Phone Belinda Dowling MD Primary Care Provider Allergies Active Allergy Reactions Criticality Noted Date Comments Pertussis Vaccines Rash Low 02/14/2021 Localized rash at injection site Medications omeprazole (PriLOSEC) [address] capsuleIndicaticarlos ns:Gastroesophag eal reflux disease, unspecified whether esophagitis present TAKE 1 CAPSULE BY MOUTH ONCE DAILY 90 capsule 04/23/2025 Active Surgical History Surgery Date Site/Laterality Comments OTHER SURGICAL HISTORY 1975 PROCEDURE: [place] UNLISTED LAPAROSCOPY PROCEDURE UTERUS OTHER SURGICAL HISTORY PROCEDURE: ARTHROSCOPY PROCEDURE NEC TOTAL KNEE ARTHROPLASTY 04/2008 PROCEDURE: [place] ARTHRP KNE CONDYLE&PLATU MEDIAL&LAT COMPARTMENTS; COMMENT: left [...] Arthritis 08/30/2017 DX:Arthritis; CO MMENT: Comments: Dr. Samayoa - knees. Gets cortisone shots Osteoarthrosis DX:Osteoarthrosi s History [...] Sign Reading Time Taken Comments Blood Pressure 133/57 03/09/2025 3:08 PM EDT Pulse 65 03/09/2025 3:08 PM EDT Temperature 36.8 C (98.2 F) 03/09/2025 3:08 PM EDT Respiratory Rate 16 03/09/2025 3:08 PM EDT Oxygen Saturation 99% 03/09/2025 3:08 PM EDT Inhaled Oxygen Concentration - - Weight 93.9 kg (207 lb) 10/23/2024 8:44 AM EST Height 165.1 cm (5' 5 ) 10/23/2024 8:44 AM EST Body Mass Index 34.45 10/23/2024 8:44 AM EST Plan of Treatment Upcoming Encounters Date Type Department Care Team (Late st Contact Info) Description 12/04/2025 11:00 AM EST Office Visit Gastroenterology - [place] 175 [facility] [address] [facility] [address] [place] [phone] Jessica Dexter NP 175 [facility] [address] [place] [address] Health Maintenance Due Date Last Done Comments Zoster Vaccines (3 of 3) 12/17/2020 020, 08/23/2020, 02/11/2012 Falls Risk Assessment 09/27/2022 Hepatitis C Screening 09/27/2022 Medicare Annual Wellness Visit 09/27/2022 Social Influencers of Health Screening 09/27/2022 Depression Screening 10/25/2024 COVID-19 Vaccine ( season) 2025 07/12/2024, 07/24/2022, 03/12/2022, Additional history exists Influenza Vaccine (#1) 2025 , 08/04/2023, 07/24/2022, Additional history exists Hypertension/CHF/CAD Annual BMP Blood Test 03/28/2026 03/28/2025, 03/09/2025 Cholesterol Screening (Lipid Panel) 03/28/2030 03/28/2025 Osteoporosis Screening (Bone Density Screening) 08/13/2030 08/13/2020 DTaP,Tdap,and Td Vaccines (3 - Td or Tdap) 02/14/2031 02/14/2021, 05/13/2011 Pneumococcal Vaccine: 50+ Years Completed 09/22/2023, 08/22/2015, 07/27/2013, Additional history exists RSV Immunization Adult Patients Completed 11/18/2023 Breast Cancer Screening Discontinued 10/23/20, 10/21/2023, 10/07/2022, Additional history exists HIB Vaccines [...] Procedure Name Priority Date/Time Associated Diagnosis Comments BASIC METABOLIC PANEL Routine 03/28/2025 9:44 AM EDT Hypertension, essential Pure hypercholesterolemia LIPID PANEL WITH REFLEX TO DIRECT LDL Routine 03/28/2025 9:44 AM EDT Hypertension, essential Pure hypercholesterolemia MG MAMMO DIGITAL SCREENING W ROBBY BILAT Routine 10/23/2024 9:01 AM EST Breast cancer screening by mammogram MARIA VICTORIA DEXA AXIAL SKELETON Routine 08/13/2020 4:17 PM EDT Asymptomatic menopausal state from Last 3 Months or Most Recently Relevant to Health Maintenance Results * Lipid panel with reflex to direct LDL (03/28/2025 9:44 AM EDT) Cholesterol 161 0 - 200 mg/dL LAB CHEMISTRY METHOD 03/28/2025 10:48 AM [facility] Triglycerides 112 0 - 150 mg/dL LAB CHEMISTRY METHOD 03/28/2025 10:48 AM [facility] HDL 77 >=40 mg/dL LAB CHEMISTRY METHOD 03/28/2025 10:48 AM [facility] LDL Calculated 62 0 - 100 mg/dL LAB CHEMISTRY METHOD 03/28/2025 10:48 AM [facility] VLDL Cholesterol Nicholas 22.4 mg/dL LAB CHEMISTRY METHOD 03/28/2025 10:48 AM [facility] Non HDL Chol. (LDL+VLDL) 84 <145 mg/dL LAB CHEMISTRY METHOD 03/28/2025 10:48 AM [facility] Chol/HDL Ratio 2.1 0.0 - 4.4 LAB CHEMISTRY METHOD 03/28/2025 10:48 AM [facility] Blood Venous blood specimen / Unknown Venipuncture / Unknown 03/28/2025 9:44 AM EDT 03/28/2025 9:54 AM EDT us Belinda Dowling MD LAB BLOOD ORDERABLES Final Result [facility] [address] [place] [address], * (ABNORMAL) Basic metabolic panel (03/28/2025 9:44 AM EDT) Sodium 137 133 - 145 mmol/L LAB CHEMISTRY METHOD 03/28/2025 10:48 AM T [facility] Potassium 3.9 3.5 - 5.5 mmol/L LAB CHEMISTRY METHOD 03/28/2025 10:48 AM [facility] Chloride 104 96 - 110 mmol/L LAB CHEMISTRY METHOD 03/28/2025 10:48 AM [facility] CO2 28 21 - 32 mmol/L LAB CHEMISTRY METHOD 03/28/2025 10:48 AM [facility] Anion Gap 5 3 - 11 LAB CHEMISTRY METHOD 03/28/2025 10:48 AM [facility] Glucose 105(H) 70 - 100 mg/dL LAB CHEMISTRY METHOD 03/28/2025 10:48 AM [facility] BUN 19 5 - 25 mg/dL LAB CHEMISTRY METHOD 03/28/2025 10:48 AM [facility] Creatinine 0.88 0.50 - 1.10 mg/dL LAB CHEMISTRY METHOD 03/28/2025 10:48 AM [facility] eGFR 68 >=60 mL/min/1. 73m2 LAB CHEMISTRY METHOD 03/28/2025 10:48 AM [facility] Comment:Calculation based on the Chronic Kidney Disease Epidemiology Collaboration (CKD-EPI) equation refit without adjustment for race. BUN/Creatinine Ratio 21.6 LAB CHEMISTRY METHOD 03/28/2025 10:48 AM [facility] Calcium 9.7 8.5 - 10.5 mg/dL LAB CHEMISTRY METHOD 03/28/2025 10:48 AM [facility] Blood Venous blood specimen / Unknown Venipuncture / Unknown 03/28/2025 9:44 AM EDT 03/28/2025 9:54 AM EDT Belinda Dowling MD LAB BLOOD ORDERABLES Final Result [facility] [address] [place] [address], * MG Mammo Digital Screening w Robby [...] for biopsy. PQRI CPT II 3342F Code 96562, 46876 PQRI 225 CPT II 7025F TISSUE DENSITY: There are scattered areas of fibroglandular density. (BI-RADS category B) IMPRESSION: Benign. BI-RADS CATEGORY: 2 - BENIGN RECOMMENDATION: Screening bilateral mammogram is recommended in 1 year. Mammo Location: [facility], [address] [place] [id number] -------- FINAL REPORT -------- Dictated By: Ralph Garnett Dictated Date: 10/23/2024 10:20 ET Assigned Physician: Ralph Garnett Reviewed and Electronically Signed By: Ralph Garnett Signed Date: 10/23/2024 10:24 ET Workstation ID: [id number] Transcribed By: Self Edit Transcribed Date: 10/23/2024 10:20 ET Narrative 10/23/2024 10:24 AM EST CLINICAL: The patient is a 74 years Female presenting for routine screening mammography. COMPARISON: Most recently 10/20/2023 and most remotely 07/21/2017. TECHNIQUE: Full-field digital mammography of the breasts bilaterally consisting of tomosynthesis in MLO and CC projection is performed in the [employer] 2000-D unit. Computer aided detection utilizing the iCAD system was utilized. FINDINGS: The breasts are again seen to be composed of a combination of fatty and fibroglandular elements. Bilateral benign punctate, secretory, and rim type calcifications are again seen. Vascular calcifications are again noted. There is no suspicious cluster of microcalcifications, mass, [...] MLO and CC projection is performed in the[employer] Senographe 2000-D unit. Computer aided detection utilizing the [...] for biopsy. PQRI CPT II 3342F Code 11347, 23910 PQRI 225 CPT II 7025F TISSUE DENSITY: There are scattered areas of fibroglandular density.(BI-RADS category B) IMPRESSION: Benign. BI-RADS CATEGORY: 2 - BENIGN RECOMMENDATION: Screening bilateral mammogram is recommended in 1 year. Mammo Location: [facility], [address] [place] [id number] -------- FINAL REPORT -------- Dictated By: Ralph Garnett Dictated Date: 10/23/2024 10:20 ET Assigned Physician: Ralph Garnett Reviewed and Electronically Signed By: Ralph Garnett Signed Date: 10/23/2024 10:24 ET Workstation ID: [id number] Transcribed By: Self Edit Transcribed Date: 10/23/2024 10:20 ET us Belinda Dowling MD IMG BI PROCEDURES Final Res ult * MARIA VICTORIA DEXA AXIAL SKELETON (08/13/2020 4:17 PM EDT) Anatomical Region Laterality Modality Mammography 08/13/2020 8:53 AM EDT Narrative 08/13/2020 4:[address] [facility] Diagnostic Imaging Department [address] [place] [id number] Patient: KAILA SCHAFER /Age/Sex: 1950 - 70 - F Unit#: [id number] Location/Status: [facility] CLI Mnemonic/Ordering Site: [facility]X/SPMAM Ordering Physician: BELINDA [...] Normal bone mineralization in the bilateral hips. [id number] A report detailing these results has been enclosed. Dictating Physician: JOHNIE GROVES MD Electronically Signed by: JOHNIE GROVES MD Dic Date/Time: 08/13/201615 Sign date/Time: 08/13/201616 Procedure Note Johnie Groves MD - 10/13/2022 [facility] Diagnostic Imaging Department [address] [place], [place] [id number] Patient: KAILA SCHAFER /Age/Sex: 1950 - 70 - F Unit#: [id number] [facility] Ordering Physician: BELINDA DOWLING MD [facility] Dexa Axial Skeleton - 08/13/20929 HISTORY: Post [...] Normal bone mineralization in the bilateral hips. [id number] A report detailing these results has been enclosed. Dictating Physician: JOHNIE GROVES MD Electronically Signed by: JOHNIE GROVES MD Dic Date/Time: 08/13/20 1616 Sign date/Time: 08/13/20 1617 Belinda Dowling MD IMG BI PROCEDURES Final Res ult from Last 3 Months or Most Recently Relevant to Health Maintenance Insurance [employer] Advance Directives Documents on File Type Date Recorded Patient Environmental Health Safety Engineer Expl anation Health Care Decision (hx) 02/01/2017 [...] (hx) 11/15/2015 AD SHELL DIRECTIVE Care Teams Glaze Supervisor Relationship Specialty Start Date End Date Belinda Dowling MD [address] [place] [id number] PCP - General Internal Medicine 08/13/18
--- OUTSIDE RECORDS SUMMARY | 2025-07-23 11:44 | XMS_ITS | Clinical Summary ---
Author Organization [facility] Address [address] [place] [address] Care Team Providers Care Machinist Apprentice Wood Name Role Phone Belinda Dowling MD Primary Care Provider [phone] Allergies No known active allergies Medications Medication [...] 1-dose 75+ series) 2023 Influenza Vaccine (#1) 2025 9, 08/30/2017, 08/24/2016, Additional history exists DTap / Tdap / Td (2 - Td or Tdap) 02/14/2031 02/14/2021 Pneumococcal Vaccine Completed 08/22/2015, 07/27/2013, 08/02/2007 Hepatitis B Vaccines Aged Out No long er eligible based on patient's age to complete this topic RSV Ped < 20 months Aged Out No longe r eligible based on patient's age to complete this topic Care Teams Machinist Apprentice Wood Relationship Specialty Start Date End Date Belinda Dowling MD [address] [place] [phone] PCP - General Family Medicine 06/14/17
--- OUTSIDE RECORDS SUMMARY | 2025-07-23 11:44 | XMS_ITS | Clinical Summary ---
Author Organization [place] [address] [place] [address] [place] [phone] Care Team Providers Care Goat Herder Name Role Phone Belinda Dowling MD Primary Care Provider [phone] Allergies Active Allergy Reactions Criticality Noted Date [...] 37.5-25 mg per tablet 01/16/2021 Active Immunizations Immunization Administration Dates Next Due Tdap 02/14/2021 Social [...] 106 02/14/2021 2:18 PM EDT Temperature 36.5 C (97.7 F) 02/14/2021 2:18 PM EDT Respiratory Rate 18 02/14/2021 2:18 PM EDT [...] Immunization (1 - 1-dose 75+ series) 2023 Influenza vaccine 05/25/2025 Covid-19 vaccine series ( - season) 2025 Tetanus adult (Td q 10,TDAP once) 02/14/2031 021 Breast cancer screening Discontinued Cervical cancer screening Discontinued Colon cancer screening, Colonoscopy Discontinued Meningococcal B Vaccine Aged Out No l onger eligible based on patient's age to complete this topic Meningococcal Vaccine Aged Out No rachel boni eligible based on patient's age to complete this topic Insurance MEDICARE [place] [place]IC[place] [facility] [place] [id number] [place] Care Teams Goat Herder Relationship Specialty Start Date End Date Belinda Dowling MD PCP - General Family Medicine 02/14/21
--- OUTSIDE RECORDS SUMMARY | 2025-07-23 11:44 | XMS_ITS ---
Author Name [facility] Organization Unknown History of Medication Use Medication Directions Dispensed Refills Start Date End Date Stat amoxicillin 500 mg capsule TAKE 1 CAPSULE BY MOUTH THREE TIMES DAILY active atorvastatin 20 mg tablet active diclofenac sodium 25 mg tablet,delayed release TAKE 1 TABLET BY MOUTH EVERY DAY active estradiol 10 mcg vaginal tablet INSERT 1 TABLET VAGINALLY THREE TIMES A WEEK active fluticasone propionate 50 mcg/actuation nasal spray,suspension SHAKE LIQUID AND USE 1 SPRAY IN EACH NOSTRIL EVERY DAY active ibuprofen 600 mg tablet TAKE 1 TABLET BY MOUTH EVERY 6 HOURS 1 HOUR BEFORE DENTAL APPOINTMENT FOR PAIN active nitrofurantoin monohydrate/macrocrysta ls 100 mg capsule TAKE 1 CAPSULE BY MOUTH TWICE DAILY WITH FOOD FOR 5 DAYS active sulfamethoxazole 800 mg-trimethoprim 160 mg tablet TAKE 1 TABLET BY MOUTH TWICE DAILY FOR 5 DAYS active Problems Problem Status Onset Date Problem Type Date of Resoluti on Source Infrapatellar bursitis of right knee active 2023-12-01 ProblemAct [facility] Osteoarthritis of right hip joint active 2023-12-01 ProblemAct [facility] Encounters Encounter Type Encounter Reason Primary Diagnosis Location Date Ambulatory [facility] 03/26/2025 Ambulatory [facility] 11/30/2023 Ambulatory [facility] 11/30/2023 Ambulatory [facility] 11/27/2023 Ambulatory [facility] 11/27/2023 Ambulatory [facility] 11/26/2023 Ambulatory [facility] 11/26/2023 Ambulatory [facility] 11/26/2023
== END 2025-07-23 10:55 | disposition home or self-care (01) ==
LOC: HO.HPS 10:29
PROVIDERS: PCP Family Medicine; Visit Provider Hospitalist
DX: R05.3 Chronic cough (principal); T78.40XA Allergy, unspecified, initial encounter; J45.40 Moderate persistent asthma, uncomplicated
CPT/HCPCS: 99214; G2211

== ENCOUNTER → 2025-07-23 10:29 | Outpatient (BNVA) | payer MEDICARE, SELFPAY | PROVIDERS: PCP Family Medicine; Visit Provider Hospitalist | DX: R05.3 Chronic cough (principal); J45.909 Unspecified asthma, uncomplicated; K21.9 Gastro-esophageal reflux disease without esophagitis; Z91.09 Other allergy status, other than to drugs and biological substances | CPT/HCPCS: 99212 ==